=== PATIENT | female | born 1960 | race Caucasian/White ===

== ENCOUNTER 2017-07-02 23:47 | Emergency (ER) | payer MEDICARE ==
[2017-07-03] MEDS ORDERED: Sodium Chloride 0.9% 10 ML Syringe FLUSH PRN (00:12)
[2017-07-03] MEDS ORDERED: Ketorolac 30 MG/ML SDV IVPUSH ONE (00:13)
[2017-07-03] MEDS ORDERED: Ondansetron 4 MG/2 ML SDV IVPUSH ONE (00:13)
[2017-07-03] MEDS ORDERED: Sodium Chloride 0.9% 1,000 ML IV SCH (00:15)
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
[2017-07-03] MEDS ORDERED: HYDROmorphone 1 MG/ML Syringe IM ONE (02:18)
== END 2017-07-03 02:30 | disposition home or self-care (01) ==
LOC: JD.ED 23:47
DX: R51 Headache (principal); M25.561 Pain in right knee; G89.29 Other chronic pain
CPT/HCPCS: 36415; 80053; 81001; 85025; 87804; 96361; 96372; 96374; 96375; 99284; J1170; J1885; J2405; J7040; J7050